=== PATIENT | male | born 1965 | race Caucasian/White ===

== ENCOUNTER 2020-07-25 17:28 | Inpatient (IN) | payer MEDICARE, OTHER ==
[~2020-07-25 17:28] MED LIST: Iopamidol-370 76% 500 ML 1 ML ONE
[2020-07-25] MEDS ORDERED: Propofol 1,000 MG/100 ML VIAL IV ONE (17:34)
[2020-07-25] MEDS ORDERED: Midazolam HCl 5 mg/ml Vial ONE (17:43)
[2020-07-25] MEDS ORDERED: Rocuronium Bromide 10 MG/ML (10ML VIAL) ONE ×2 (17:44→17:45)
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
[2020-07-25 17:55] LABS: #Basophils 0.1 thou/uL (0.0-0.2); #Eosinphils 0.1 thou/uL (0.0-0.7); #Lymphocytes 2.1 thou/uL (1.20-3.40); #Monocytes 0.4 thou/uL (0.11-0.59); #Neutrophils 7.6 thou/uL (1.40-6.50); %Basophils 0.7 % (0.0-1.0); %Eosinophils 0.6 % (0.0-10.0); %Lymphocytes 20.4 % (21.0-51.0); %Monocytes 3.6 % (0.0-10.0); %Neutrophils 74.7 % (42.0-75.0); Hemoglobin 17.2 g/dL (14.0-18.0); Mean Corpuscular HGB CONC 34.1 g/dL (32.0-36.0); Mean Corpuscular Hemoglobin 33.1 pg (27.0-31.0); Mean Corpuscular Volume 97.3 fL (78.0-98.0); Mean Platelet Volume 6.5 fL (7.4-10.4); Platelet Count 345 thou/uL (130-400); RBC Distribution Width 12.2 % (11.5-14.5); White Blood Cell (WBC) Count 10.2 thou/uL (4.8-10.8)
[2020-07-25 17:56] LABS: Actual Bicarbonate (HCO3a) 18.2 mEq/L (22-28); Analyzer IN Cardio ER; Base Excess (BEa) -7.6 mEq/L (-2.0 to +3.0); CO2 Tension 38.7 mmHg (35.0-45.0); Calcium, Ionized (arterial) 1.22 mmol/L (1.12-1.30); Carboxyhemoglobin (COHb) 0.2 gm% (0.0-3.0); Hemoglobin (Hb) 17.7 g/dL (14.0-18.0); O2 Tension (PaO2), arterial 117.1 mmHg (80.0-100.0); Potassium - ABG Lab 3.73 mmol/L (3.70-5.30); Puncture Site RBRACH; pH, Arterial 7.29 (7.35-7.45)
[2020-07-25 17:57] LABS: ALV-art Gradient 547.525 mmHg (0-20)
[2020-07-25 17:59] LABS: INR-International Normal Ratio 0.9; PTT 26.4 sec (22.9-36.1); Prothrombin Time 12.6 sec (12.0-14.7)
[2020-07-25 18:15] LABS: Bilirubin Negative (Negative); Blood, Urine Negative (Negative); Clarity Clear (Clear); Glucose, Urine (Dipstick) Normal (Negative); Ketone, Urine Negative (Negative); Leukocyte Negative Leu/uL (Negative); Nitrite Negative (Negative); Protein, Urine (Dipstick) 20 mg/dL (Neg-Trace); Specific Gravity, Urine 1.011 (1.002-1.036); Urobilinogen Normal mg/dL (Less than 2); pH, Urine 5.5 (5.0-9.0)
[2020-07-25 18:16] LABS: ALT (SGPT) 36 U/L (8-55); AST (SGOT) 35 U/L (5-34); Albumin 4.2 g/dL (3.5-5.0); Alkaline Phosphatase 72 U/L (40-110); Anion Gap 17 mmol/L (10-20); BUN (Urea Nitrogen) 12 mg/dL (8.4-25.7); Bilirubin, Total 0.4 mg/dL (0.2-1.2); Calc. Creatinine Clearance 0 mL/min (70-130); Calcium 8.6 mg/dL (7.8-10.44); Carbon Dioxide 18 mmol/L (22-29); Chloride 107 mmol/L (98-107); Estimated GFR-MDRD 76; Glucose 131 mg/dL (70-105); Lipase 9 U/L (8-78); Potassium 3.7 mmol/L (3.5-5.1); Protein, Total 7.2 g/dL (6.0-8.3); Sodium 138 mmol/L (136-145)
[2020-07-25 18:28] LABS: Acetaminophen Less than 6.0 mcg/mL (10.0-30.0); Alcohol 69 mg/dL (Less than 10); Salicylate Less than 8.0 mg/dL (15.0-30.0)
[2020-07-25 18:29] LABS: CK (CPK) 166 U/L (30-200)
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
[2020-07-25] MEDS ORDERED: hydrALAZINE 20 MG/ML VIAL SLOW IVP PRN (18:41)
[2020-07-25] MEDS ORDERED: Insulin Regular 300 UNITS/3 ML VIAL SC PRN (18:41)
[2020-07-25] MEDS ORDERED: Dextrose 5% in Water 1,000 ML IV PRN (18:41)
[2020-07-25] MEDS ORDERED: Dextrose 50% Abboject 50 ML SYRINGE SLOW IVP PRN (18:41)
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
[2020-07-25] MEDS ORDERED: Ventilator Sedation Protocol 1 EACH FS SCH (18:45)
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
[2020-07-25] MEDS ORDERED: Boostrix 0.5 ML (Tdap) VIAL ONE (18:55)
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
--- NOTE | 2020-07-25 19:12 | RAD ---
Exam:3 views right hand HISTORY: [facility]. Pain. COMPARISON: 12/18/2005 FINDINGS: Limited evaluation due to persistent flexion. No fracture, cortical irregularity or periost eal reaction. Preserved joint spaces. IMPRESSION: No fracture.
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
[2020-07-25] MEDS ORDERED: Fentanyl 100 MCG/2 ML VIAL ONE (19:21)
[2020-07-25 19:30] LABS: Amphetamine Not Detected (NotDetected); Barbiturates Screen Not Detected (NotDetected); Benzodiazepine Screen Not Detected (NotDetected); Cocaine Metabolite Screen Not Detected (NotDetected); Medtox Control Line Valid? VALID (VALID); Medtox Reader # READER 4; Methadone Not Detected (NotDetected); Methamphetamine Not Detected (NotDetected); Opiate Screen Not Detected (NotDetected); Oxycodone Screen Not Detected (NotDetected); Phencyclidine (PCP) Not Detected (NotDetected); THC/Cannabinoid Screen Not Detected (NotDetected); Tricyclic Screen Not Detected (NotDetected)
[2020-07-25] MEDS ORDERED: Morphine 2 MG/ML VIAL SLOW IVP PRN ×2 (19:30→21:30)
[2020-07-25] MEDS ORDERED: Lorazepam 2 MG/ML VIAL SLOW IVP PRN ×2 (19:30→21:30)
[2020-07-25] MEDS ORDERED: Propofol BOLUS 1,000 MG/100 ML VIAL IV PRN ×2 (19:30→21:30)
[2020-07-25] MEDS ORDERED: Propofol 1,000 MG/100 ML VIAL IV PRN (19:30)
[2020-07-25] MEDS ORDERED: Fentanyl BOLUS 250 ML IVPB PRN (19:30)
[2020-07-25] MEDS ORDERED: fentaNYL Citrate/PF 2,000 MCG in Sodium Chloride 0.9% 60 ML IV SCH (19:30)
[2020-07-25] MEDS ORDERED: DISCONTINUE PREVIOUS NARCOTIC PAIN MEDICATIONS AND BENZODIAZEPINES FS SCH (19:30)
[2020-07-25] MEDS: Sodium Chloride 0.9% 1,000 ML IV SCH (20:00)
[2020-07-25] MEDS: Propofol 1,000 MG/100 ML VIAL IV PRN (20:00)
[2020-07-25] MEDS ORDERED: Ventilator Sedation Protocol 1 EACH FS ONE (21:17)
--- NOTE | 2020-07-25 21:43 | CT ---
Exam: Head CT without contrast HISTORY: Follow-up right temporal hemorrhage. COMPARISON: 11/04/2019 at 6:24 PM FINDINGS: Hemorrhage: Redemonstration of right tentorial subdural blood. There is evidence of left tentorial nuñez bdural blood. There is also subdural blood along the falx. There are linear densities involving sulci suggesting small amounts of subarachnoid hemorrhage. There is stable extra-axial blood along th e right frontal and temporal convexity. Small parenchymal contusion in the right temporal lobe is once again noted measuring 0.8 cm. Brain parenchyma: Previously suggested loss of herr-white matter differentiation is less evident on t he current exam. Herr-white matter differentiation appears to be preserved. There do appear to be sulci. Stable configuration of the ventricular system. Ventricular system: Stable configuration of the ventricular system Calvarium: Redemonstration of post traumatic changes of the calvarium and scalp. Sinuses and mastoid air cells: Stable opacification. IMPRESSION: 1. Redemonstration of intraparenchymal hemorrhage, unchanged. 2. Better demonstration of small amounts of subarachnoid hemorrhage involving multiple sulci. 3. Redemonstration of parafalcine subdural hematoma and right tentorial subdural hematoma. On the cur rent study there is also evidence of left sided tentorial subdural hemorrhage. Transcribed Date/Time: 07/25/2020 9:51 PM
[2020-07-25] MEDS: Famotidine/PF 20 mg/2ml Vial SLOW IVP SCH (22:00)
[2020-07-25 22:08] LABS: Prothrombin Time 13.3 sec (12.0-14.7)
[2020-07-25] MEDS: levETIRAcetam in NS 500 MG in Premix Bag 1 BAG IVPB SCH (22:30)
[2020-07-25 23:17] LABS: Lactic Acid 1.7 mmol/L (0.5-2.2)
[2020-07-26 01:16] VITALS: BMI 35.6
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
[2020-07-26 05:13] LABS: #Lymphocytes 1.2 thou/uL (1.20-3.40); #Monocytes 0.9 thou/uL (0.11-0.59); #Neutrophils 11.4 thou/uL (1.40-6.50); %Basophils 0.1 % (0.0-1.0); %Eosinophils 0.1 % (0.0-10.0); %Lymphocytes 8.8 % (21.0-51.0); %Monocytes 6.8 % (0.0-10.0); %Neutrophils 84.2 % (42.0-75.0); Hemoglobin 16.1 g/dL (14.0-18.0); Mean Corpuscular HGB CONC 34.6 g/dL (32.0-36.0); Mean Corpuscular Hemoglobin 33.4 pg (27.0-31.0); Mean Corpuscular Volume 96.8 fL (78.0-98.0); Mean Platelet Volume 6.9 fL (7.4-10.4); Platelet Count 278 thou/uL (130-400); RBC Distribution Width 12.2 % (11.5-14.5); Red Blood Cell (RBC) Count 4.82 mill/uL (4.70-6.10); White Blood Cell (WBC) Count 13.6 thou/uL (4.8-10.8)
[2020-07-26 05:29] LABS: Lactic Acid 2.2 mmol/L (0.5-2.2)
[2020-07-26 05:30] LABS: Anion Gap 12 mmol/L (10-20); BUN (Urea Nitrogen) 12 mg/dL (8.4-25.7); Calc. Creatinine Clearance 143 mL/min (70-130); Calcium 7.8 mg/dL (7.8-10.44); Carbon Dioxide 25 mmol/L (22-29); Chloride 107 mmol/L (98-107); Estimated GFR-MDRD Greater than 90; Glucose 116 mg/dL (70-105); Magnesium 1.7 mg/dL (1.6-2.6); Phosphorus 2.5 mg/dL (2.3-4.7); Potassium 4.1 mmol/L (3.5-5.1); Sodium 140 mmol/L (136-145)
[2020-07-26] MEDS ORDERED: Magnesium 2 GM/50 ML 2 GM in Premix Bag 1 BAG IVPB SCH (07:15)
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
[2020-07-26 07:46] LABS: Actual Bicarbonate (HCO3a) 23.1 mEq/L (22-28); CO2 Tension 36.7 mmHg (35.0-45.0); Calcium, Ionized (arterial) 1.11 mmol/L (1.12-1.30); Carboxyhemoglobin (COHb) 0.3 gm% (0.0-3.0); Hemoglobin (Hb) 16.3 g/dL (14.0-18.0); O2 Tension (PaO2), arterial 87.2 mmHg (80.0-100.0); Potassium - ABG Lab 4.21 mmol/L (3.70-5.30); pH, Arterial 7.42 (7.35-7.45)
[2020-07-26 07:49] LABS: ALV-art Gradient 223.425 mmHg (0-20); Puncture Site RBRACH
[2020-07-26] MEDS: Sodium Chloride 0.9% 1,000 ML IV SCH ×3 (07:53→21:20)
--- NOTE | 2020-07-26 08:24 | RAD ---
EXAM: Portable chest PROVIDED CLINICAL HISTORY: Respiratory insufficiency COMPARISON: 07/25/2020 FINDINGS: Significant interval change with respect to the prior examination is not apparent. IMPRESSION: As above.
[2020-07-26] MEDS ORDERED: Calcium Chloride 1 GM/10 ML Abboject SYRINGE IVP SCH (09:00)
--- NOTE | 2020-07-26 09:06 | CT ---
PRELIMINARY REPORT/[facility]/EMERGENCY AFTER HOURS PROCEDURE: EXAM: CT Head Without Intravenous Contrast. CLINICAL HISTORY: F/U TECHNIQUE: Axial computed tomography images of the head/brain without intravenous contrast. COMPARISON: July 25, 2020 FINDINGS: BRAIN: Within the right parietal, right tentorial, and interhemispheric subdural hematomas are again noted a nd unchanged. Hemorrhagic contusions within the temporal lobes bilaterally also about the same. No significant mass-effect or midline shift. SOFT TISSUES: No significant facial or scalp soft tissue swelling evident. No radiopaque foreign body is seen. BONES: Fracture through the right temporal bone is again noted. IMPRESSION: Grossly unchanged. ELECTRONICALLY SIGNED BY: Rajendra Schroeder MD Jul 26, 2020 4:13:43 AM CDT This report is intended for review by the ordering physician only, in accordance of law. If you recei ve this report in error, please call [facility] at [phone]. FINAL REPORT BRAIN CT WITHOUT IV COTNRAST: Emergency after-hours study. TIME: 3:54 AM. DATE: 07/26/2020. COMPARISON: 07/25/2020. FINDINGS: Evidence for persistent intraparenchymal, subarachnoid, and subdural hemorrhagic changes as well as e xtensive facial bone fractures and fluid within the sinuses and partial mastoid opacification bilater ally. No significant new hemorrhage or mass effect. This report agrees with the preliminary report. POS: RRE
[2020-07-26] MEDS: Propofol 1,000 MG/100 ML VIAL IV PRN (09:23)
[2020-07-26] MEDS: Famotidine/PF 20 mg/2ml Vial SLOW IVP SCH ×2 (09:24→20:09)
[2020-07-26] MEDS: Multivitamin W/ Minerals 1 TAB PO SCH (09:24)
[2020-07-26] MEDS: Thiamine 100 MG TAB PO SCH (09:24)
[2020-07-26] MEDS: Folic Acid 1 MG TAB PO SCH (09:24)
[2020-07-26] MEDS: Acetaminophen 500 MG TAB PO SCH ×2 (09:24→15:59)
[2020-07-26] MEDS: levETIRAcetam in NS 500 MG in Premix Bag 1 BAG IVPB SCH ×2 (09:24→20:05)
[2020-07-26] MEDS ORDERED: Ondansetron PF 4 MG/2 ML Vial IVP PRN (13:46)
[2020-07-26] MEDS: Oxazepam 10 MG CAP PO SCH ×2 (14:07→21:20)
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
[2020-07-26] MEDS: Acetaminophen 325 MG TAB PO SCH (18:38)
[2020-07-26] MEDS: Senokot S 8.6-50 MG TAB PO SCH (20:09)
[2020-07-26] MEDS: Acetaminophen/Codeine 30-300mg Tablet PO PRN (21:52)
[2020-07-27] MEDS ORDERED: Sodium Chloride 0.65% Nasal 44 ML BOT EA NARE PRN (00:54)
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
[2020-07-27 05:01] LABS: #Monocytes 0.7 thou/uL (0.11-0.59); #Neutrophils 8.9 thou/uL (1.40-6.50); %Basophils 0.3 % (0.0-1.0); %Eosinophils 0.2 % (0.0-10.0); %Lymphocytes 9.4 % (21.0-51.0); %Monocytes 6.6 % (0.0-10.0); %Neutrophils 83.5 % (42.0-75.0); Hemoglobin 14.6 g/dL (14.0-18.0); Mean Corpuscular Hemoglobin 33.2 pg (27.0-31.0); Mean Corpuscular Volume 97.7 fL (78.0-98.0); Mean Platelet Volume 7.1 fL (7.4-10.4); Platelet Count 235 thou/uL (130-400); RBC Distribution Width 12.1 % (11.5-14.5); Red Blood Cell (RBC) Count 4.41 mill/uL (4.70-6.10); White Blood Cell (WBC) Count 10.6 thou/uL (4.8-10.8)
[2020-07-27 05:38] LABS: Anion Gap 9 mmol/L (10-20); BUN (Urea Nitrogen) 12 mg/dL (8.4-25.7); Calc. Creatinine Clearance 155 mL/min (70-130); Calcium 7.9 mg/dL (7.8-10.44); Carbon Dioxide 25 mmol/L (22-29); Chloride 110 mmol/L (98-107); Estimated GFR-MDRD Greater than 90; Glucose 111 mg/dL (70-105); Magnesium 2.1 mg/dL (1.6-2.6); Phosphorus 1.9 mg/dL (2.3-4.7); Potassium 4.1 mmol/L (3.5-5.1); Sodium 140 mmol/L (136-145)
[2020-07-27] MEDS: Acetaminophen 325 MG TAB PO SCH ×5 (05:39→23:44)
[2020-07-27] MEDS: Sodium Chloride 0.9% 1,000 ML IV SCH ×4 (05:39→21:53)
[2020-07-27] MEDS: Oxazepam 10 MG CAP PO SCH ×3 (06:07→21:52)
[2020-07-27] MEDS ORDERED: Sodium Phosphate 30 MMOL in Sodium Chloride 0.9% 250 ML 250 ML IVPB SCH (08:00)
[2020-07-27] MEDS ORDERED: FLU VACC QS2020-21(6MOS UP)/PF 60 MCG/0.5 ML SYRINGE IM ONE (09:00)
[2020-07-27] MEDS: Famotidine/PF 20 mg/2ml Vial SLOW IVP SCH (09:45)
[2020-07-27] MEDS: Folic Acid 1 MG TAB PO SCH (09:45)
[2020-07-27] MEDS: levETIRAcetam in NS 500 MG in Premix Bag 1 BAG IVPB SCH ×2 (09:45→21:52)
[2020-07-27] MEDS: Thiamine 100 MG TAB PO SCH (09:46)
[2020-07-27] MEDS: Senokot S 8.6-50 MG TAB PO SCH ×2 (09:46→21:52)
[2020-07-27] MEDS: Polyethylene Glycol 3350 17 GM Packet PO SCH (09:46)
[2020-07-27] MEDS: Multivitamin W/ Minerals 1 TAB PO SCH (09:46)
[2020-07-27] MEDS: Acetaminophen/Codeine 30-300mg Tablet PO PRN ×3 (09:46→23:45)
[2020-07-27] MEDS ORDERED: Scopolamine 1.5 mg/72 hour Patch TOP SCH (14:30)
[2020-07-27 15:25] LABS: SARS-CoV-2 MS2 Positive; SARS-CoV-2 N Gene Negative; SARS-CoV-2 S Gene Negative; SARS-CoV-2 by NAA Not Detected (NotDetected); SARS-CoV-2 orf1ab Negative
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
[2020-07-27] MEDS ORDERED: Acetaminophen 325 MG TAB PO SCH (23:59)
[2020-07-27] MEDS ORDERED: Gabapentin 300 MG CAP PO SCH (23:59)
--- NOTE | 2020-07-28 00:13 | PRG ---
DATE OF SERVICE: SUBJECTIVE: Patient was seen during evening rounds in the intermediate care unit. Patient is currently awake, alert, in no distress. Patient does have his hearing aids in this evening and is much easier to communicate with. Patient reports pain all over. Patient did have dizziness earlier today whenever he sat up. Patient did sit up in the chair some today. Patient is not able to cough deeply due to pain. Patient is encouraged to use his incentive spirometer and cough deeply as much he can. OBJECTIVE: VITAL SIGNS: Stable, afebrile. GENERAL: Middle-age male awake, alert, in no distress. EXTREMITIES: Moves all extremities. Neurologically intact x4. NEUROLOGIC: GCS 15. PLAN: We will add gabapentin and Flexeril to the patient's pain regimen. Continue aggressive pulmonary toilet. Continue regular diet as tolerated. Increase physical and occupational therapy. Continue to monitor neurological status. Job ID: [id number]
[2020-07-28 03:42] LABS: #Lymphocytes 1.7 thou/uL (1.20-3.40); #Monocytes 0.7 thou/uL (0.11-0.59); #Neutrophils 7.4 thou/uL (1.40-6.50); %Basophils 0.2 % (0.0-1.0); %Eosinophils 0.2 % (0.0-10.0); %Lymphocytes 17.1 % (21.0-51.0); %Monocytes 7.4 % (0.0-10.0); %Neutrophils 75.1 % (42.0-75.0); Hemoglobin 14.6 g/dL (14.0-18.0); Mean Corpuscular HGB CONC 34.3 g/dL (32.0-36.0); Mean Corpuscular Hemoglobin 33.6 pg (27.0-31.0); Platelet Count 254 thou/uL (130-400); RBC Distribution Width 11.9 % (11.5-14.5); Red Blood Cell (RBC) Count 4.35 mill/uL (4.70-6.10); White Blood Cell (WBC) Count 9.9 thou/uL (4.8-10.8)
[2020-07-28 04:04] LABS: Anion Gap 11 mmol/L (10-20); BUN (Urea Nitrogen) 9 mg/dL (8.4-25.7); Calc. Creatinine Clearance 161 mL/min (70-130); Calcium 7.9 mg/dL (7.8-10.44); Carbon Dioxide 24 mmol/L (22-29); Chloride 109 mmol/L (98-107); Estimated GFR-MDRD Greater than 90; Glucose 91 mg/dL (70-105); Magnesium 2.1 mg/dL (1.6-2.6); Potassium 3.7 mmol/L (3.5-5.1); Sodium 140 mmol/L (136-145)
[2020-07-28 04:13] LABS: Phosphorus 1.9 mg/dL (2.3-4.7)
[2020-07-28] MEDS ORDERED: Potassium Phosphate 30 MMOL in Sodium Chloride 0.9% 250 ML 250 ML IVPB SCH (04:45)
[2020-07-28] MEDS: Sodium Chloride 0.9% 1,000 ML IV SCH ×2 (05:14→11:24)
[2020-07-28] MEDS: Gabapentin 300 MG CAP PO SCH ×3 (05:21→21:22)
[2020-07-28] MEDS: Acetaminophen 325 MG TAB PO SCH ×4 (05:21→23:57)
[2020-07-28] MEDS: Oxazepam 10 MG CAP PO SCH ×3 (05:21→21:22)
[2020-07-28] MEDS: Polyethylene Glycol 3350 17 GM Packet PO SCH (09:20)
[2020-07-28] MEDS: Senokot S 8.6-50 MG TAB PO SCH ×2 (09:20→21:22)
[2020-07-28] MEDS: Multivitamin W/ Minerals 1 TAB PO SCH (09:20)
[2020-07-28] MEDS: levETIRAcetam 500 MG TAB PO SCH ×2 (09:21→21:22)
[2020-07-28] MEDS: Acetaminophen/Codeine 30-300mg Tablet PO PRN ×2 (09:21→17:01)
[2020-07-28] MEDS: Thiamine 100 MG TAB PO SCH (09:21)
[2020-07-28] MEDS: Tamsulosin HCl 0.4 MG CAP PO SCH (09:21)
[2020-07-28] MEDS: Lisinopril 5 MG TAB PO SCH (09:21)
[2020-07-28] MEDS: Loratadine 10 MG TAB PO SCH (09:21)
[2020-07-28] MEDS: Folic Acid 1 MG TAB PO SCH (09:21)
[2020-07-28] MEDS: Fluticasone Propionate Nasal Spray 16 gm Bottle NASAL SCH (09:22)
[2020-07-28] MEDS: Cyclobenzaprine 10 MG TAB PO PRN (12:45)
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
--- NOTE | 2020-07-29 01:48 | PRG ---
DATE OF SERVICE: 07/28/2020 SUBJECTIVE: The patient was seen during evening rounds, resting comfortably in no acute distress. The patient arouses easily to voice. The patient is able to cough deeply with moderate amount of pain. The patient's does state that the patient had a productive dark appearing cough earlier today. IMPRESSION: Productive cough earlier today. The patient has been afebrile, max temp today 99.5. Vital signs are stable. The patient's white blood count today was within normal limits. Urinary output has been adequate for patient's age and weight. PLAN: Continue to increase physical and occupational therapy. The patient was instructed to be up in the chair and increase his activity during the day. Aggressive pulmonary toilet with the use of incentive spirometer every hour while awake. We will obtain a sputum culture. Wound care to address patient's abrasions and right hand wound. Bacitracin twice a day for wounds. Continue pain regimen. Continue regular diet with modifications as tolerated. Repeat labs in the morning. Job ID: [id number]
[2020-07-29] MEDS: Oxazepam 10 MG CAP PO SCH ×3 (05:05→21:07)
[2020-07-29] MEDS: Acetaminophen 325 MG TAB PO SCH ×4 (05:05→23:10)
[2020-07-29] MEDS: Gabapentin 300 MG CAP PO SCH ×3 (05:05→21:08)
[2020-07-29 05:47] LABS: Anion Gap 9 mmol/L (10-20); BUN (Urea Nitrogen) 9 mg/dL (8.4-25.7); Calc. Creatinine Clearance 150 mL/min (70-130); Calcium 7.9 mg/dL (7.8-10.44); Carbon Dioxide 27 mmol/L (22-29); Chloride 110 mmol/L (98-107); Estimated GFR-MDRD Greater than 90; Glucose 111 mg/dL (70-105); Magnesium 2.1 mg/dL (1.6-2.6); Phosphorus 2.6 mg/dL (2.3-4.7); Sodium 142 mmol/L (136-145)
[2020-07-29] MEDS ORDERED: PHOS-NAK 1 PKT PACK PO SCH (08:00)
--- NOTE | 2020-07-29 08:48 | RAD ---
PORTABLE CHEST: Date: 07/29/2020 HISTORY: Cough. Rib fractures. COMPARISON: 07/26/2020. FINDINGS/IMPRESSION: Hazy infiltrate and/or atelectasis in the left perihilar region and in the left lower lobe. Small salvador ateral effusions appear stable. ET tube has been removed. Central line is unchanged. No significant p neumothorax identified. No significant interval change in the appearance of the chest. POS: OFF
[2020-07-29] MEDS ORDERED: Lidocaine 5% Patch TD SCH (09:00)
[2020-07-29] MEDS: Acetaminophen/Codeine 30-300mg Tablet PO PRN ×3 (09:49→22:11)
[2020-07-29] MEDS: Tamsulosin HCl 0.4 MG CAP PO SCH (09:50)
[2020-07-29] MEDS: Lisinopril 5 MG TAB PO SCH (09:51)
[2020-07-29] MEDS: Multivitamin W/ Minerals 1 TAB PO SCH (09:51)
[2020-07-29] MEDS: Loratadine 10 MG TAB PO SCH (09:51)
[2020-07-29] MEDS: Thiamine 100 MG TAB PO SCH (09:52)
[2020-07-29] MEDS: Senokot S 8.6-50 MG TAB PO SCH ×2 (09:52→21:08)
[2020-07-29] MEDS: Polyethylene Glycol 3350 17 GM Packet PO SCH (09:52)
[2020-07-29] MEDS: levETIRAcetam 500 MG TAB PO SCH ×2 (09:52→21:07)
[2020-07-29] MEDS: Folic Acid 1 MG TAB PO SCH (09:52)
[2020-07-29] MEDS: Fluticasone Propionate Nasal Spray 16 gm Bottle NASAL SCH (09:53)
[2020-07-29] MEDS: Bacitracin Zinc Ointment 30 gm TUBE TOP SCH ×2 (09:53→21:09)
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
[2020-07-29] MEDS: Lidocaine 5% Patch TD SCH (14:57)
[2020-07-29] MEDS: Cyclobenzaprine 10 MG TAB PO PRN (18:38)
[2020-07-29] MEDS ORDERED: Lidocaine Patch Removal 1 EACH TOP SCH (21:00)
[2020-07-29] MEDS: Meclizine HCl 25 MG TAB PO SCH (21:07)
--- NOTE | 2020-07-29 22:32 | PRG ---
DATE OF SERVICE: 07/29/2020 SUBJECTIVE: Patient was seen during evening rounds, resting in bed. The patient's is currently at bedside. The patient is reporting complaints of dizziness, headache, and vertigo-type symptoms as he feels like the room is spinning. The patient does report having some vertigo symptoms in the past and takes [id number] medications. The patient also reports having some difficulty seeing out of his right eye, which is new. The patient did sit up in the chair today. The patient's appetite has been decreased, but he did drink his Ensure and Januvia supplements. OBJECTIVE: Vital signs are stable and he remains afebrile. Urinary output has been adequate for patient's age and weight. PLAN: Continue supportive care and pain regimen. We will add meclizine 25 mg q.8 hours as patient is complaining of vertigo-type symptoms. We will consider Ophthalmology consult for right eye. Continue aggressive pulmonary toilet with the use of incentive spirometer every hour while awake. Increase activity per Physical and Occupational Therapy. The patient is to be up in the chair most of the day, as tolerated. Job ID: [id number]
[2020-07-30] MEDS: Acetaminophen/Codeine 30-300mg Tablet PO PRN ×3 (02:58→20:25)
[2020-07-30] MEDS: Lidocaine Patch Removal TOP SCH (03:01)
[2020-07-30] MEDS: Meclizine HCl 25 MG TAB PO SCH ×3 (06:06→20:26)
[2020-07-30] MEDS: Gabapentin 300 MG CAP PO SCH (06:06)
[2020-07-30] MEDS: Acetaminophen 325 MG TAB PO SCH ×4 (06:06→22:48)
[2020-07-30] MEDS: Oxazepam 10 MG CAP PO SCH ×3 (06:06→20:25)
[2020-07-30 06:34] LABS: #Eosinphils 0.2 thou/uL (0.0-0.7); #Lymphocytes 1.5 thou/uL (1.20-3.40); #Monocytes 0.6 thou/uL (0.11-0.59); #Neutrophils 3.8 thou/uL (1.40-6.50); %Basophils 0.7 % (0.0-1.0); %Eosinophils 3.2 % (0.0-10.0); %Lymphocytes 24.4 % (21.0-51.0); %Monocytes 9.8 % (0.0-10.0); %Neutrophils 61.9 % (42.0-75.0); Hemoglobin 15.3 g/dL (14.0-18.0); Mean Corpuscular Hemoglobin 33.5 pg (27.0-31.0); Mean Corpuscular Volume 98.3 fL (78.0-98.0); Mean Platelet Volume 6.7 fL (7.4-10.4); Platelet Count 282 thou/uL (130-400); Red Blood Cell (RBC) Count 4.56 mill/uL (4.70-6.10); White Blood Cell (WBC) Count 6.1 thou/uL (4.8-10.8)
[2020-07-30 07:08] LABS: Anion Gap 10 mmol/L (10-20); BUN (Urea Nitrogen) 11 mg/dL (8.4-25.7); Calc. Creatinine Clearance 152 mL/min (70-130); Calcium 8.3 mg/dL (7.8-10.44); Carbon Dioxide 28 mmol/L (22-29); Chloride 108 mmol/L (98-107); Estimated GFR-MDRD Greater than 90; Glucose 106 mg/dL (70-105); Phosphorus 3.6 mg/dL (2.3-4.7); Potassium 3.9 mmol/L (3.5-5.1); Sodium 142 mmol/L (136-145)
[2020-07-30] MEDS: Polyethylene Glycol 3350 17 GM Packet PO SCH (08:27)
[2020-07-30] MEDS: Loratadine 10 MG TAB PO SCH (08:28)
[2020-07-30] MEDS: levETIRAcetam 500 MG TAB PO SCH ×2 (08:28→20:26)
[2020-07-30] MEDS: Multivitamin W/ Minerals 1 TAB PO SCH (08:28)
[2020-07-30] MEDS: Tamsulosin HCl 0.4 MG CAP PO SCH (08:28)
[2020-07-30] MEDS: Senokot S 8.6-50 MG TAB PO SCH ×2 (08:28→20:26)
[2020-07-30] MEDS: Folic Acid 1 MG TAB PO SCH (08:29)
[2020-07-30] MEDS: Thiamine 100 MG TAB PO SCH (08:29)
[2020-07-30] MEDS: Lisinopril 5 MG TAB PO SCH (08:30)
[2020-07-30] MEDS: Bacitracin Zinc Ointment 30 gm TUBE TOP SCH ×2 (08:31→20:26)
[2020-07-30] MEDS: Fluticasone Propionate Nasal Spray 16 gm Bottle NASAL SCH (08:38)
[2020-07-30] MEDS: Gabapentin 100 MG CAP PO SCH ×2 (13:22→20:26)
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
[2020-07-30] MEDS: Lidocaine 5% Patch TD SCH (18:54)
[2020-07-30] MEDS: Cyclobenzaprine 10 MG TAB PO PRN (22:48)
[2020-07-31] MEDS: Acetaminophen/Codeine 30-300mg Tablet PO PRN ×3 (02:12→11:59)
[2020-07-31] MEDS: Acetaminophen 325 MG TAB PO SCH ×2 (06:13→13:54)
[2020-07-31] MEDS: Gabapentin 100 MG CAP PO SCH ×2 (06:13→13:59)
[2020-07-31] MEDS: Lidocaine Patch Removal TOP SCH (06:14)
[2020-07-31] MEDS: Meclizine HCl 25 MG TAB PO SCH ×2 (06:14→13:59)
[2020-07-31] MEDS: Tamsulosin HCl 0.4 MG CAP PO SCH (08:31)
[2020-07-31] MEDS: Loratadine 10 MG TAB PO SCH (08:32)
[2020-07-31] MEDS: Thiamine 100 MG TAB PO SCH (08:32)
[2020-07-31] MEDS: levETIRAcetam 500 MG TAB PO SCH (08:32)
[2020-07-31] MEDS: Folic Acid 1 MG TAB PO SCH (08:32)
[2020-07-31] MEDS: Lisinopril 5 MG TAB PO SCH (08:32)
[2020-07-31] MEDS: Multivitamin W/ Minerals 1 TAB PO SCH (08:32)
[2020-07-31] MEDS: Oxazepam 10 MG CAP PO SCH (08:34)
[2020-07-31] MEDS: Bacitracin Zinc Ointment 30 gm TUBE TOP SCH (10:07)
[2020-07-31] MEDS: Polyethylene Glycol 3350 17 GM Packet PO SCH (10:08)
[2020-07-31] MEDS: Fluticasone Propionate Nasal Spray 16 gm Bottle NASAL SCH (10:08)
[2020-07-31] MEDS: Senokot S 8.6-50 MG TAB PO SCH (10:08)
[2020-07-31] MEDS: Cyclobenzaprine 10 MG TAB PO PRN (11:59)
[2020-07-31 12:06] VITALS: BP 134/84; TEMP 97.7
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
--- NOTE | 2020-08-03 13:24 | EKG ---
Test Reason : Blood Pressure : / mmHG Vent. Rate : 090 BPM Atrial Rate : 090 BPM P-R Int : 132 ms QRS Dur : 094 ms QT Int : 374 ms P-R-T Axes : 034 -25 032 degrees QTc Int : 457 ms Normal sinus rhythm Normal ECG Confirmed by KRISTA HARMAN DO ([id number]), editor index MAURISIO GAUILLON ([id number]) on 08/03/2020 1:24:42 PM Referred By: Confirmed By:KRISTA HARMAN DO
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
== END 2020-07-31 15:48 | DRG 82 ==
LOC: ERS 17:28 → CCU 21:15 → IMCU/EMU 07-27 18:48 → SJJU 07-28 11:46
PROVIDERS: ADMIT Specialist; ATTEND Specialist
PROC: 0BH17EZ Insertion of Endotracheal Airway into Trachea, Via Natural or Artificial Opening (ICD-10-PCS; principal; 2020-07-25)
PROC: 5A1935Z Respiratory Ventilation, Less than 24 Consecutive Hours (ICD-10-PCS; 2020-07-25)
DX: S06.5X9A Traumatic subdural hemorrhage with loss of consciousness of unspecified duration, initial encounter (principal); J96.00 Acute respiratory failure, unspecified whether with hypoxia or hypercapnia; S22.049A Unspecified fracture of fourth thoracic vertebra, initial encounter for closed fracture; S22.039A Unspecified fracture of third thoracic vertebra, initial encounter for closed fracture; S22.059A Unspecified fracture of T5-T6 vertebra, initial encounter for closed fracture; S22.41XA Multiple fractures of ribs, right side, initial encounter for closed fracture; S06.6X9A Traumatic subarachnoid hemorrhage with loss of consciousness of unspecified duration, initial encounter; S06.1X9A Traumatic cerebral edema with loss of consciousness of unspecified duration, initial encounter; S02.40EA Zygomatic fracture, right side, initial encounter for closed fracture; N40.0 Benign prostatic hyperplasia without lower urinary tract symptoms; E78.5 Hyperlipidemia, unspecified; K21.9 Gastro-esophageal reflux disease without esophagitis; I10 Essential (primary) hypertension; E66.9 Obesity, unspecified; R40.2362 Coma scale, best motor response, obeys commands, at arrival to emergency department; R40.2142 Coma scale, eyes open, spontaneous, at arrival to emergency department; R40.2212 Coma scale, best verbal response, none, at arrival to emergency department; S02.19XA Other fracture of base of skull, initial encounter for closed fracture; E83.51 Hypocalcemia; E83.42 Hypomagnesemia; E83.39 Other disorders of phosphorus metabolism; Z68.35 Body mass index [BMI] 35.0-35.9, adult; Z20.828 Contact with and (suspected) exposure to other viral communicable diseases; V49.49XA Driver injured in collision with other motor vehicles in traffic accident, initial encounter
CPT/HCPCS: 36415; 36416; 36430; 51702; 70450; 70486; 70498; 71045; 71260; 72125; 72170; 74177; 80048; 80053; 80306; 80307; 81003; 82550; 82805; 83605; 83690; 83735; 84100; 85025; 85610; 85730; 86850; 86900; 86901; 87070; 87205; 87635; 90471; 90662; 90715; 90732; 93005; 94002; 94003; 94760; 96365; 96366; 96368; 96375; 96376; 99292; G0008; G0009; G0390; J0690; J1953; J2060; J2250; J2405; J2704; J3010; J3475; J3490; J7050; P9016; Q9967; S0028; U0003